=== PATIENT | male | born 1955 | race Caucasian/White ===

== ENCOUNTER → 2016-08-08 | Outpatient (REF) ==
--- NOTE | 2016-08-09 03:02 | REP ---
Clinical: Pain and disability. Technique: AP, lateral, coned-down views of the lumbar spine. Findings: Three views of the lumbosacral spine demonstrate satisfactory alignment and lordosis without acute fracture / compression injury or subluxation. Moderate degenerative changes include endplate sclerosis, marginal spurring, and disc space narrowing primarily involving the L5-S1 and L4-L5 levels. Impression: Moderate multilevel degenerative changes primarily involving the L4-5 and L5-S1 levels. No acute fracture / compression injury or subluxation. Signed by Antonio Ruiz MD 08/09/2016 02:53 A
== END ==
LOC: M SMT 14:32
PROVIDERS: ATTEND Internal Medicine
DX: Z02.1 Encounter for pre-employment examination (principal)